=== PATIENT | female | born 1995 | race Caucasian/White ===

== ENCOUNTER 2021-06-20 15:05 | Emergency (ER) | payer OTHER ==
[~2021-06-20 15:05] MED LIST: 3IN1 COMMODE; MACROBID100 MG PO; PYRIDIUM100 MG PO; birth control
[2021-06-20 16:10] LABS: BASOPHIL 0.8 % (0-2); HCT 35.4 % (37.0-47.0); HGB 11.6 g/dl (12.5-16.0); LYMPHOCYTE 31.5 % (15-48); MCH 31.1 pg (25.0-31.0); MCHC 32.8 g/dL (32.0-36.0); MCV 94.9 fL (78.0-100.0); MONOCYTE 9.1 % (0-12); MPV 10.3 fL (6.0-9.5); NEUTROPHIL 53.4 % (41-80); NRBC 0; PLT 263 K/uL (150-400); RBC 3.73 M/uL (4.20-5.40); RDW 13.3 % (11.5-14.0); WBC 6.2 K/uL (4.0-10.5)
[2021-06-20 16:12] LABS: BUN/CREAT RATIO (CALC) 17.2 RATIO; CREATININE 0.64 mg/dL (0.51-0.95); POTASSIUM 3.7 mmol/L (3.5-5.1)
[2021-06-20] MEDS ORDERED: ZPAK PO (18:14)
[2021-06-20] MEDS ORDERED: MEDROL 4MG DOSEP4 MG PO (18:14)
== END 2021-06-20 18:19 | disposition home or self-care (01) ==
LOC: FER 15:05
PROVIDERS: Nurse Practitioner Family
DX: R07.89 Other chest pain (principal); J06.9 Acute upper respiratory infection, unspecified
CPT/HCPCS: 36415; 71045; 80048; 84484; 85025; 85379; 93005

== ENCOUNTER 2022-03-03 05:00 | Emergency (ER) | payer OTHER ==
[~2022-03-03 05:00] MED LIST changes: +MEDROL 4MG DOSEP4 MG PO; +ZPAK PO
[2022-03-03 05:49] LABS: BASOPHIL 0.7 % (0-2); HCT 31.2 % (37.0-47.0); HGB 10.3 g/dl (12.5-16.0); MCH 32.7 pg (25.0-31.0); MONOCYTE 6.3 % (0-12); MPV 10.2 fL (6.0-9.5); NEUTROPHIL 71.8 % (41-80); NRBC 0; PLT 266 K/uL (150-400); RBC 3.15 M/uL (4.20-5.40); RDW 12.6 % (11.5-14.0); WBC 9.6 K/uL (4.0-10.5)
[2022-03-03 06:05] LABS: ALBUMIN 3.5 g/dL (3.4-5.0); BILIRUBIN - TOTAL 0.1 mg/dL (0.2-1.0); BUN/CREAT RATIO (CALC) 11.8 RATIO; CREATININE 0.76 mg/dL (0.51-0.95); GLOBULIN (CALCULATION) 2.8 g/dL; POTASSIUM 3.7 mmol/L (3.5-5.1); TOTAL PROTEIN 6.3 g/dL (6.4-8.2)
[2022-03-03 06:12] LABS: BILIRUBIN NEGATIVE (NEGATIVE); BLOOD 3+ Ery/uL (NEGATIVE); GLUCOSE (U) NORMAL (NORMAL); LEUKOCYTES TRACE Leu/uL (NEGATIVE); NITRITE NEGATIVE (NEGATIVE); PROTEIN NEGATIVE (NEGATIVE); UROBILINOGEN 0.2 mg/dL (0.2-1.0)
[2022-03-03 06:25] LABS: CLARITY HAZY (CLEAR); COLOR AMBER (YELLOW)
[2022-03-03 06:26] LABS: URINARY RBC TNTC
[2022-03-03] MEDS ORDERED: SPRINTEC 28 DA1 EACH PO (07:10)
== END 2022-03-03 07:34 | disposition home or self-care (01) ==
LOC: FER 05:00
PROVIDERS: Internal Medicine
DX: N93.9 Abnormal uterine and vaginal bleeding, unspecified (principal); F17.290 Nicotine dependence, other tobacco product, uncomplicated
CPT/HCPCS: 36415; 80053; 81001; 84145; 85025; 86850; 86900; 86901; 99284

== ENCOUNTER 2022-03-04 20:59 | Inpatient (IN) | payer OTHER ==
[~2022-03-04 20:59] MED LIST changes: +SPRINTEC 28 DA1 EACH PO
[2022-03-04 21:46] LABS: BASOPHIL 0.6 % (0-2); EOSINOPHIL 1.6 % (0-5); HCT 28.5 % (37.0-47.0); HGB 9.4 g/dl (12.5-16.0); LYMPHOCYTE 23.8 % (15-48); MCH 32.9 pg (25.0-31.0); MCV 99.7 fL (78.0-100.0); NEUTROPHIL 66.6 % (41-80); NRBC 0; PLT 289 K/uL (150-400); RBC 2.86 M/uL (4.20-5.40); RDW 12.7 % (11.5-14.0); WBC 10.8 K/uL (4.0-10.5)
[2022-03-04 22:05] LABS: ALBUMIN 3.9 g/dL (3.4-5.0); BILIRUBIN - TOTAL 0.1 mg/dL (0.2-1.0); BUN/CREAT RATIO (CALC) 11.9 RATIO; CREATININE 0.67 mg/dL (0.51-0.95); GLOBULIN (CALCULATION) 3.2 g/dL; POTASSIUM 3.2 mmol/L (3.5-5.1); TOTAL PROTEIN 7.1 g/dL (6.4-8.2)
[2022-03-05 06:40] LABS: HCT 25.5 % (37.0-47.0); HGB 8.3 g/dl (12.5-16.0); MCH 31.1 pg (25.0-31.0); MCHC 32.5 g/dL (32.0-36.0); MPV 10.4 fL (6.0-9.5); RBC 2.67 M/uL (4.20-5.40); RDW 15.7 % (11.5-14.0); WBC 9.5 K/uL (4.0-10.5)
[2022-03-05 06:47] LABS: MCV 95.5 fL (78.0-100.0)
[2022-03-05 18:23] LABS: HCT 24.2 % (37.0-47.0); MCH 31.7 pg (25.0-31.0); MCHC 33.1 g/dL (32.0-36.0); RBC 2.52 M/uL (4.20-5.40); WBC 10.3 K/uL (4.0-10.5)
--- NOTE | 2022-03-06 04:05 | NUR ---
PHONED DR. ALVAREZ R/T B/P OF WITH MAP OF 57. NEW ORDERS RECEIVED FOR BOLUS OF LR AND TO RUN AT 125CC/HR AFTER BOLUS. ORDERS REPEATED BACK AND VERIFIED.
[2022-03-06 07:15] LABS: HCT 20.8 % (37.0-47.0); HGB 6.9 g/dl (12.5-16.0); MCH 31.9 pg (25.0-31.0); MCHC 33.2 g/dL (32.0-36.0); MCV 96.3 fL (78.0-100.0); MPV 10.6 fL (6.0-9.5); RBC 2.16 M/uL (4.20-5.40); RDW 15.9 % (11.5-14.0); WBC 8.4 K/uL (4.0-10.5)
[2022-03-06 21:42] LABS: HCT 30.3 % (37.0-47.0); MCH 31.6 pg (25.0-31.0); MCHC 33.3 g/dL (32.0-36.0); MCV 94.7 fL (78.0-100.0); MPV 10.4 fL (6.0-9.5); RBC 3.2 M/uL (4.20-5.40); RDW 15.4 % (11.5-14.0); WBC 13.6 K/uL (4.0-10.5)
[2022-03-06 21:44] LABS: HGB 10.1 g/dl (12.5-16.0)
[2022-03-07 21:11] LABS: CHLAMYDIA TRACHOMATIS, NAA Negative (Negative); NEISSERIA GONORRHOEAE, NAA Negative (Negative)
[2022-03-09] MEDS ORDERED: ZOLOFT50 MG PO (13:24)
== END 2022-03-07 10:46 | disposition home or self-care (01) | DRG 760 ==
LOC: FER 20:59 → FOB 03-05 00:50 → FMS 03-05 15:18
PROVIDERS: Emergency Medicine; Obstetrics & Gynecology; ADMIT Obstetrics & Gynecology
PROC: 30233M1 Transfusion of Nonautologous Plasma Cryoprecipitate into Peripheral Vein, Percutaneous Approach (ICD-10-PCS; principal; 2022-03-06)
PROC: 30233M1 Transfusion of Nonautologous Plasma Cryoprecipitate into Peripheral Vein, Percutaneous Approach (ICD-10-PCS; 2022-03-06)
PROC: 30233N1 Transfusion of Nonautologous Red Blood Cells into Peripheral Vein, Percutaneous Approach (ICD-10-PCS; 2022-03-06)
DX: N93.8 Other specified abnormal uterine and vaginal bleeding (principal); D62 Acute posthemorrhagic anemia; F41.9 Anxiety disorder, unspecified; N92.0 Excessive and frequent menstruation with regular cycle; D50.9 Iron deficiency anemia, unspecified; G43.909 Migraine, unspecified, not intractable, without status migrainosus; E04.1 Nontoxic single thyroid nodule; Z87.442 Personal history of urinary calculi; Z81.8 Family history of other mental and behavioral disorders; Z80.3 Family history of malignant neoplasm of breast; Z82.49 Family history of ischemic heart disease and other diseases of the circulatory system; Z87.891 Personal history of nicotine dependence
CPT/HCPCS: 36415; 36430; 71275; 80053; 84703; 85025; 86850; 86900; 86901; 86922; 87210; 87491; 87591; 93005; G0378; J1410; J2405; J2916; J7120; P9016

== ENCOUNTER → 2022-03-13 | Day surgery (SDC) | payer OTHER ==
[~2022-03-13] VITALS: Ht 177.8 cm; Wt 48.5 kg
[~2022-03-13] MED LIST changes: +ZOLOFT50 MG PO
[2022-03-13 08:29] LABS: HCG (URINE) SCREEN NEGATIVE (NEGATIVE)
[2022-03-13 08:42] LABS: HCT 35.9 % (37.0-47.0); HGB 11.9 g/dl (12.5-16.0); MCH 31.9 pg (25.0-31.0); MCHC 33.1 g/dL (32.0-36.0); MCV 96.2 fL (78.0-100.0); MPV 9.7 fL (6.0-9.5); RBC 3.73 M/uL (4.20-5.40); WBC 7.9 K/uL (4.0-10.5)
== END | disposition home or self-care (01) ==
LOC: FAS 08:01
PROVIDERS: Obstetrics & Gynecology
DX: N71.1 Chronic inflammatory disease of uterus (principal); D64.9 Anemia, unspecified; F41.9 Anxiety disorder, unspecified; K21.9 Gastro-esophageal reflux disease without esophagitis; Z87.891 Personal history of nicotine dependence; Z79.899 Other long term (current) drug therapy
CPT/HCPCS: 36415; 84703; 86850; 86900; 86901; J2250; J2405; J3010; J7120